=== PATIENT | female | born 1935 | race Caucasian/White ===

== ENCOUNTER 2023-09-06 18:54 | Inpatient (IN) ==
[2023-09-06] MEDS ORDERED: IOPAMIDOL 100 ML BOTTLE IV ONE (18:55)
[2023-09-06 19:58] LABS: POC Calcium, Ionized 1.29 (1.16-1.32); POC Creatinine 0.5 (0.6-1.2)
[2023-09-06] MEDS: 0.9 % SODIUM CHLORIDE 1,000 ML IV ONE (20:33)
[2023-09-06 22:49] LABS: Basophils # (Auto) 0.01 K/mcL (0.00-0.30); Basophils % (Auto) 0.2 % (0.0-2.0); Eosinophils % (Auto) 4.5 % (0.0-7.0); Hematocrit 33.3 % (34.1-44.9); Hemoglobin 10.9 g/dL (11.2-15.7); Lymphocytes # (Auto) 0.55 K/mcL (1.50-4.80); Lymphocytes % (Auto) 12.4 % (15.5-49.0); Mean Cell Volume 86.3 fL (80.0-100.0); Mean Corpuscular HGB Conc 32.7 g/dL (31.0-36.0); Mean Platelet Volume 9.9 fL (8.8-12.5); Monocytes # (Auto) 0.37 K/mcL (0.10-0.90); Monocytes % (Auto) 8.3 % (1.0-12.0); Neutrophils % (Auto) 74.6 % (38.0-78.0); Platelet Count 81 K/mcL (140-440); RBC 3.86 M/mcL (3.59-5.38); Red Cell Distribution Width 14.7 % (11.5-14.5); WBC 4.5 K/mcL (4.5-11.0)
[2023-09-07] MEDS: 0.9 % SODIUM CHLORIDE 250 ML IV SCH
[2023-09-07] MEDS: 0.9 % SODIUM CHLORIDE 1,000 ML IV SCH ×2 (00:08)
[2023-09-07] MEDS: PIPERACILLIN SODIUM/TAZOBACTAM 3.375 GM in DEXTROSE 5% IN WATER 100 ML IV SCH (00:09)
[2023-09-07 00:29] LABS: Carcinoembryonic Antigen 4.7 ng/mL (<3.4)
[2023-09-07] MEDS: HYDROmorphone 0.5 MG/0.5 ML SYRINGE IV PRN ×2 (01:12→11:03)
[2023-09-07] MEDS: HYDROmorphone 0.5 MG/0.5 ML SYRINGE ONE (01:41)
[2023-09-07] MEDS: ACETAMINOPHEN 500 MG/50 ML BAG IV PRN (02:38)
[2023-09-07] MEDS ORDERED: POTASSIUM CHLORIDE 20 MEQ TABLET PO PRN ×2 (08:31)
[2023-09-07] MEDS ORDERED: IPRATROPIUM/ALBUTEROL 3 ML AMPUL.NEB NEB PRN (08:31)
[2023-09-07] MEDS ORDERED: MAGNESIUM SULFATE 2 GM/50 ML BAG IV PRN (08:31)
[2023-09-07] MEDS ORDERED: POLYETHYLENE GLYCOL 3350 17 GM PACKET PO PRN (08:31)
[2023-09-07] MEDS ORDERED: POTASSIUM CHLORIDE 40 MEQ in DEXTROSE 5% IN WATER 500 ML IV PRN (08:31)
[2023-09-07] MEDS ORDERED: CARBIDOPA/LEVODOPA 25/100 TABLET PO SCH (09:00)
[2023-09-07] MEDS: GABAPENTIN 100 MG CAPSULE PO SCH (09:15)
[2023-09-07] MEDS: OMEPRAZOLE 20 MG CAPSULE PO SCH (09:15)
[2023-09-07] MEDS: ESCITALOPRAM 20 MG TABLET PO SCH (09:15)
[2023-09-07] MEDS: CARBIDOPA/LEVODOPA 25/100 TABLET PO SCH (09:16)
[2023-09-07] MEDS: LEVOTHYROXINE 75 MCG TABLET PO SCH (09:16)
[2023-09-07 09:46] LABS: Basophils # (Auto) 0 K/mcL (0.00-0.30); Basophils % (Auto) 0 % (0.0-2.0); Eosinophils # (Auto) 0.14 K/mcL (0.00-0.70); Eosinophils % (Auto) 3.1 % (0.0-7.0); Hematocrit 35.7 % (34.1-44.9); Hemoglobin 11.6 g/dL (11.2-15.7); Lymphocytes # (Auto) 0.42 K/mcL (1.50-4.80); Lymphocytes % (Auto) 9.2 % (15.5-49.0); Mean Cell Volume 85.8 fL (80.0-100.0); Mean Corpuscular HGB Conc 32.5 g/dL (31.0-36.0); Mean Platelet Volume 10.6 fL (8.8-12.5); Monocytes # (Auto) 0.33 K/mcL (0.10-0.90); Monocytes % (Auto) 7.3 % (1.0-12.0); Neutrophils % (Auto) 80.2 % (38.0-78.0); Platelet Count 93 K/mcL (140-440); RBC 4.16 M/mcL (3.59-5.38); Red Cell Distribution Width 14.5 % (11.5-14.5); WBC 4.6 K/mcL (4.5-11.0)
[2023-09-07 09:47] LABS: ALT/SGPT 13 U/L (<40); AST/SGOT 31 U/L (<32); Albumin 3.4 gm/dL (3.2-5.2); Albumin/Globulin Ratio 1.4 (1.0-2.3); Alkaline Phosphatase 80 U/L (39-117); Bilirubin,Direct 0.4 mg/dL (<0.3); Bilirubin,Total 0.9 mg/dL (0.1-1.0); Blood Urea Nitrogen 15 mg/dL (8-23); Calcium 9.1 mg/dL (8.6-10.4); Carbon Dioxide 23 mmol/L (22-30); Chloride 107 mmol/L (96-108); Globulin 2.4 gm/dL (2.2-3.7); Glomerular Filtration Rate 82; Glucose 95 mg/dL (70-105); Lactate Dehydrogenase 237 U/L (135-225); Triglycerides 52 mg/dL (<150); Uric Acid 3.5 mg/dL (2.5-8.0)
[2023-09-07] MEDS: ONDANSETRON 4 MG/2 ML VIAL IV PRN (11:02)
[2023-09-07] MEDS: 0.9 % SODIUM CHLORIDE 10 ML SYRINGE IV SCH (13:21)
[2023-09-07] MEDS: HYDROCORTISONE 100 MG/60 ML BOTTLE PR ONE (13:33)
[2023-09-07] MEDS: POLYETHYLENE GLYCOL 3350 17 GM PACKET PO SCH (13:33)
[2023-09-07] MEDS: ACETAMINOPHEN 325 MG TABLET PO PRN (20:23)
[2023-09-07] MEDS: LISINOPRIL 20 MG TABLET PO SCH (20:24)
[2023-09-07] MEDS: methylPREDNISolone SOD SUCC 125 MG/2 ML VIAL IV SCH (20:24)
[2023-09-07] MEDS ORDERED: LISINOPRIL 20 MG TABLET PO SCH (21:00)
[2023-09-08 06:28] LABS: ALT/SGPT < 5 U/L (<40); AST/SGOT 35 U/L (<32); Albumin 2.9 gm/dL (3.2-5.2); Albumin/Globulin Ratio 1.4 (1.0-2.3); Alkaline Phosphatase 69 U/L (39-117); Bilirubin,Direct 0.3 mg/dL (<0.3); Bilirubin,Total 0.7 mg/dL (0.1-1.0); Blood Urea Nitrogen 14 mg/dL (8-23); Calcium 8.6 mg/dL (8.6-10.4); Carbon Dioxide 20 mmol/L (22-30); Chloride 110 mmol/L (96-108); Globulin 2.1 gm/dL (2.2-3.7); Glomerular Filtration Rate 87; Glucose 120 mg/dL (70-105); Lactate Dehydrogenase 161 U/L (135-225); Phosphorous 3.2 mg/dL (2.5-4.5); Triglycerides 36 mg/dL (<150); Uric Acid 2.4 mg/dL (2.5-8.0)
[2023-09-08] MEDS: HYDROCORTISONE ACETATE 25 MG SUPP.RECT PR SCH (09:17)
[2023-09-09 06:36] LABS: Basophils # (Auto) 0 K/mcL (0.00-0.30); Basophils % (Auto) 0 % (0.0-2.0); Eosinophils # (Auto) 0 K/mcL (0.00-0.70); Eosinophils % (Auto) 0 % (0.0-7.0); Hematocrit 37.6 % (34.1-44.9); Hemoglobin 11.9 g/dL (11.2-15.7); Lymphocytes # (Auto) 0.26 K/mcL (1.50-4.80); Lymphocytes % (Auto) 4.7 % (15.5-49.0); Mean Cell Volume 86.6 fL (80.0-100.0); Mean Corpuscular HGB Conc 31.6 g/dL (31.0-36.0); Mean Platelet Volume 10.3 fL (8.8-12.5); Monocytes # (Auto) 0.27 K/mcL (0.10-0.90); Monocytes % (Auto) 4.9 % (1.0-12.0); Neutrophils % (Auto) 89.5 % (38.0-78.0); Platelet Count 105 K/mcL (140-440); RBC 4.34 M/mcL (3.59-5.38); Red Cell Distribution Width 14.5 % (11.5-14.5); WBC 5.6 K/mcL (4.5-11.0)
[2023-09-09 06:43] LABS: ALT/SGPT < 5 U/L (<40); AST/SGOT 37 U/L (<32); Albumin 2.9 gm/dL (3.2-5.2); Albumin/Globulin Ratio 1.3 (1.0-2.3); Alkaline Phosphatase 64 U/L (39-117); Bilirubin,Direct 0.2 mg/dL (<0.3); Bilirubin,Total 0.6 mg/dL (0.1-1.0); Blood Urea Nitrogen 18 mg/dL (8-23); Carbon Dioxide 21 mmol/L (22-30); Chloride 107 mmol/L (96-108); Globulin 2.3 gm/dL (2.2-3.7); Glomerular Filtration Rate 82; Glucose 116 mg/dL (70-105); Lactate Dehydrogenase 180 U/L (135-225); Phosphorous 2.6 mg/dL (2.5-4.5); Triglycerides 51 mg/dL (<150); Uric Acid 2.5 mg/dL (2.5-8.0)
[2023-09-09] MEDS: HYDROCORTISONE 100 MG/60 ML BOTTLE PR SCH (11:46)
[2023-09-10] MEDS ORDERED: IOPAMIDOL 100 ML BOTTLE IV ONE (10:17)
[2023-09-10] MEDS: ALBUMIN HUMAN 12.5 GM/50 ML VIAL IV SCH (10:58)
[2023-09-10] MEDS: FUROSEMIDE 40 MG/4 ML VIAL IV SCH (10:58)
[2023-09-10] MEDS: CARBOXYMETHYLCELLULOSE SODIUM 1 EACH DROPER.GEL OP PRN (15:33)
[2023-09-11 05:39] LABS: Basophils # (Auto) 0 K/mcL (0.00-0.30); Basophils % (Auto) 0 % (0.0-2.0); Eosinophils # (Auto) 0.12 K/mcL (0.00-0.70); Eosinophils % (Auto) 0.8 % (0.0-7.0); Hemoglobin 13.3 g/dL (11.2-15.7); Lymphocytes # (Auto) 0.99 K/mcL (1.50-4.80); Lymphocytes % (Auto) 6.8 % (15.5-49.0); Mean Cell Volume 87.1 fL (80.0-100.0); Mean Corpuscular HGB Conc 31.7 g/dL (31.0-36.0); Mean Platelet Volume 10.8 fL (8.8-12.5); Monocytes # (Auto) 0.63 K/mcL (0.10-0.90); Monocytes % (Auto) 4.3 % (1.0-12.0); Platelet Count 96 K/mcL (140-440); RBC 4.82 M/mcL (3.59-5.38); Red Cell Distribution Width 14.7 % (11.5-14.5); WBC 14.5 K/mcL (4.5-11.0)
[2023-09-11 05:56] LABS: ALT/SGPT 8 U/L (<40); AST/SGOT 48 U/L (<32); Albumin 2.9 gm/dL (3.2-5.2); Albumin/Globulin Ratio 1.5 (1.0-2.3); Alkaline Phosphatase 61 U/L (39-117); Bilirubin,Direct 0.3 mg/dL (<0.3); Bilirubin,Total 0.6 mg/dL (0.1-1.0); Blood Urea Nitrogen 24 mg/dL (8-23); Calcium 8.9 mg/dL (8.6-10.4); Carbon Dioxide 23 mmol/L (22-30); Chloride 106 mmol/L (96-108); Glomerular Filtration Rate 82; Glucose 108 mg/dL (70-105); Lactate Dehydrogenase 232 U/L (135-225); Phosphorous 2.8 mg/dL (2.5-4.5); Triglycerides 73 mg/dL (<150); Uric Acid 3.9 mg/dL (2.5-8.0)
[2023-09-11] MEDS: BUDESONIDE 3 MG CAP.XL.24H PO SCH (11:07)
[2023-09-11 12:45] LABS: Neutrophils % (Auto) 75.5 % (38.0-78.0)
[2023-09-12 06:31] LABS: ALT/SGPT 6 U/L (<40); AST/SGOT 54 U/L (<32); Albumin 2.8 gm/dL (3.2-5.2); Albumin/Globulin Ratio 1.5 (1.0-2.3); Alkaline Phosphatase 67 U/L (39-117); Basophils # (Auto) 0 K/mcL (0.00-0.30); Basophils % (Auto) 0 % (0.0-2.0); Bilirubin,Direct 0.3 mg/dL (<0.3); Bilirubin,Total 0.6 mg/dL (0.1-1.0); Blood Urea Nitrogen 24 mg/dL (8-23); Calcium 8.9 mg/dL (8.6-10.4); Carbon Dioxide 22 mmol/L (22-30); Chloride 106 mmol/L (96-108); Eosinophils # (Auto) 0.09 K/mcL (0.00-0.70); Eosinophils % (Auto) 0.6 % (0.0-7.0); Globulin 1.9 gm/dL (2.2-3.7); Glomerular Filtration Rate 87; Glucose 94 mg/dL (70-105); Hematocrit 41.1 % (34.1-44.9); Hemoglobin 13.3 g/dL (11.2-15.7); Lactate Dehydrogenase 251 U/L (135-225); Lymphocytes # (Auto) 0.75 K/mcL (1.50-4.80); Lymphocytes % (Auto) 4.9 % (15.5-49.0); Mean Cell Volume 85.4 fL (80.0-100.0); Mean Corpuscular HGB Conc 32.4 g/dL (31.0-36.0); Mean Platelet Volume 10.9 fL (8.8-12.5); Monocytes # (Auto) 1.02 K/mcL (0.10-0.90); Monocytes % (Auto) 6.7 % (1.0-12.0); Neutrophils % (Auto) 68.4 % (38.0-78.0); Phosphorous 2.2 mg/dL (2.5-4.5); Platelet Count 89 K/mcL (140-440); RBC 4.81 M/mcL (3.59-5.38); Red Cell Distribution Width 14.8 % (11.5-14.5); Triglycerides 75 mg/dL (<150); Uric Acid 4.6 mg/dL (2.5-8.0); WBC 15.2 K/mcL (4.5-11.0)
[2023-09-13 06:49] LABS: ALT/SGPT < 5 U/L (<40); AST/SGOT 59 U/L (<32); Albumin 2.7 gm/dL (3.2-5.2); Albumin/Globulin Ratio 1.6 (1.0-2.3); Alkaline Phosphatase 73 U/L (39-117); Bilirubin,Direct 0.3 mg/dL (<0.3); Bilirubin,Total 0.6 mg/dL (0.1-1.0); Blood Urea Nitrogen 29 mg/dL (8-23); Calcium 8.8 mg/dL (8.6-10.4); Carbon Dioxide 23 mmol/L (22-30); Chloride 107 mmol/L (96-108); Globulin 1.7 gm/dL (2.2-3.7); Glomerular Filtration Rate 87; Glucose 87 mg/dL (70-105); Lactate Dehydrogenase 250 U/L (135-225); Triglycerides 63 mg/dL (<150); Uric Acid 4.8 mg/dL (2.5-8.0)
[2023-09-13 07:51] LABS: Basophils # (Auto) 0.01 K/mcL (0.00-0.30); Basophils % (Auto) 0.1 % (0.0-2.0); Eosinophils # (Auto) 0.03 K/mcL (0.00-0.70); Eosinophils % (Auto) 0.3 % (0.0-7.0); Hemoglobin 13.5 g/dL (11.2-15.7); Lymphocytes # (Auto) 0.66 K/mcL (1.50-4.80); Lymphocytes % (Auto) 7.3 % (15.5-49.0); Mean Cell Volume 84.4 fL (80.0-100.0); Mean Corpuscular HGB Conc 32.9 g/dL (31.0-36.0); Mean Platelet Volume 11.1 fL (8.8-12.5); Monocytes # (Auto) 0.57 K/mcL (0.10-0.90); Monocytes % (Auto) 6.3 % (1.0-12.0); Neutrophils % (Auto) 69.3 % (38.0-78.0); Platelet Count 83 K/mcL (140-440); RBC 4.86 M/mcL (3.59-5.38)
== END 2023-09-13 14:13 | DRG 386 ==
LOC: ED 18:54 → MEDSUR 23:37
PROVIDERS: ADMIT Internal Medicine; ATTEND Internal Medicine